=== PATIENT | female | born 1990 | race African-American/Black ===

== ENCOUNTER 2024-04-22 09:50 | Emergency (ER) | payer SELFPAY ==
[~2024-04-22] VITALS: Ht 165.1 cm; Wt 104.7 kg
[2024-04-22 09:53] VITALS: BP 113/69; TEMP 97.1; O2SAT 100
[2024-04-22] MEDS ORDERED: SEMA2PEN SQ (10:04)
[2024-04-22] MEDS ORDERED: CEPH500C PO (11:40)
== END 2024-04-22 11:49 | disposition home or self-care (01) ==
LOC: M ED 09:50
DX: L03.317 Cellulitis of buttock (principal); Z79.4 Long term (current) use of insulin; Z79.2 Long term (current) use of antibiotics